=== PATIENT | male | born 1960 | race Caucasian/White ===

== ENCOUNTER 2017-03-14 12:40 | Emergency (ER) | payer OTHER ==
[2017-03-14 14:00] VITALS: BP 151/77
[2017-03-14] MEDS ORDERED: Ondansetron ODT TAB* 4 MG SL ONE (14:45)
--- NOTE | 2017-03-14 15:14 | ED ---
Lower Extremity - HPI Summary HPI Summary: PATIENT PRESENTS TO WITH CC OF LEFT GREAT TOE PAIN RADIATING TO THE FOOT. HE HAS HAD THIS PAIN FOR OVER A WEEK, WAS SEEN BY HIS PCP AND PLACED ON CLINDAMYCIN. HE COMES IN TODAY WITH WORSENING PAIN WITH RADIATION TO THE FOOT AND STATES HE TOOK HIS NAIL OFF THIS MORNING HE FELT IT WAS INFECTED AND FALLING OFF. HE DOES NOT FEEL THAT THE ANTIBIOTIC IS HELPING, ALTHOUGH THIS MEDICATION COVERS THE NORMAL ELZBIETA FOR DIABETICS IN [place] OR PARONYCHIAS. HE ALSO HAS A HISTORY OF GOUT IN THE RIGHT GREAT TOE AND THIS FEELS SIMILAR. THE AREA IS RED, WARM TO THE TOUCH AND PAINFUL. THERE IS NO SWELLING, DRAINAGE FROM THE AREA OR PUS POCKETS. HIS DIABETES IS CONTROLLED THROUGH MEDICATION, BUT HIS BG'S HAVE BEEN RUNNING 300-400 OVER THE PAST FEW WEEKS. HE HAS NEVER HAD AN INFECTION IN THE TOE BEFORE AND DENIES NEUROPATHY FROM DIABETES. HE STATES HE WILL FOLLOW UP WITH HIS PRIMARY THIS WEEK FOR A WOUND RECHECK. - History of Current Complaint Hx Obtained From: Patient Onset/Duration: Weeks Severity Initially: Moderate Severity Currently: Moderate Pain Intensity: 4 Pain Scale Used: 0-10 Numeric Timing: Constant Location: Is Discrete @ - right great toe Associated Signs And Symptoms: Positive: Swelling, Redness Aggravating Factor(s): Standing, Ambulation, Weight Bearing Alleviating Factor(s): Rest Able to Bear Weight: Yes - Risk Factors Gout Risk Factors: Male, Diabetes, Hypertension DVT Risk Factors: Negative Septic Arthritis Risk Factor: Negative <Arlen Norris - Last Filed: 03/14/17 14:55> <Carlene Angeles - Last Filed: 03/15/17 07:01> - History of Current Complaint Chief Complaint: UCWounds Stated Complaint: RT FOOT INFECTION Time Seen by Provider: 03/14/17 14:09 - Allergies/Home Medications Allergies/Adverse Reactions: Allergies Allergy/AdvReac Type Severity Reaction Status Date / Time Sitagliptin [From Novuvia] Allergy Rash Verified 03/14/17 14:00 PMH/Surg Hx/FS Hx/Imm Hx Previously Healthy: Yes Endocrine/Hematology History: Reports: Hx Diabetes Cardiovascular History: Reports: Hx Hypercholesterolemia, Hx Hypertension Denies: Hx Pacemaker/ICD Respiratory History: Denies: Hx Asthma, Hx Chronic Obstructive Pulmonary Disease (COPD) GI History: Reports: Hx Gastroesophageal Reflux Disease Musculoskeletal History: Reports: Hx Back Problems Sensory History: Reports: Hx Contacts or Glasses Denies: Hx Hearing Aid Opthamlomology History: Reports: Hx Contacts or Glasses Psychiatric History: Denies: Hx Panic Disorder - Surgical History Surgery Procedure, Year, and Place: WISDOM TEETH Hx Anesthesia Reactions: No Infectious Disease History: No Infectious Disease History: Reports: Hx Shingles - since last visit on 2013 Denies: Traveled Outside the [place] in Last 30 Days - Family History Known Family History: Positive: Hypertension - Social History Occupation: Employed Full-time Lives: With Family Alcohol Use: Occasionally Alcohol Amount: 6 oz liquor/night Substance Use Type: Reports: None Hx Tobacco Use: No Smoking Status (MU): Former Smoker Type: Cigarettes Do You Chew or Dip Tobacco: No Amount Used/How Often: 5-6 daily Have You Chewed or Dipped Tobacco in the LAST YEAR: No Length of Time of Smoking/Using Tobacco: 3-4 yrs Have You Smoked in the Last Year: No Household Exposure: No <Arlen Norris - Last Filed: 03/14/17 14:55> Review of Systems Constitutional: Negative Cardiovascular: Negative Respiratory: Negative Positive: no symptoms reported, see HPI Positive: Arthralgia - right great tow pain Positive: Other - erythema, warm, painful - great toe - right Neurological: Negative Psychological: Normal All Other Systems Reviewed And Are Negative: Yes <Arlen Norris - Last Filed: 03/14/17 14:55> Physical Exam Triage Information Reviewed: Yes Vital Signs On Initial Exam: Initial Vitals Temp Pulse Resp BP Pulse Ox 98.2 F 97 20 151/77 97 03/14/17 13:55 03/14/17 13:55 03/14/17 13:55 03/14/17 13:55 03/14/17 13:55 Vital Signs Reviewed: Yes Appearance: Positive: Well-Appearing, No Pain Distress, Well-Nourished Skin: Positive: Warm, Skin Color Reflects Adequate Perfusion, Other - great toe - erythematous, painful with warmth Head/Face: Positive: Normal Head/Face Inspection Eyes: Positive: EOMI, DIEGO Neck: Positive: Supple, No Lymphadenopathy Respiratory/Lung Sounds: Positive: Clear to Auscultation, Breath Sounds Present Cardiovascular: Positive: Normal, RRR Musculoskeletal: Positive: Normal, Strength/ROM Intact Neurological: Positive: Normal, Sensory/Motor Intact - Santhosh Coma Scale Best Eye Response: 4 - Spontaneous Best Motor Response: 6 - Obeys Commands Best Verbal Response: 5 - Oriented <Arlen Norris - Last Filed: 03/14/17 14:55> Vital Signs On Initial Exam: Initial Vitals Temp Pulse Resp BP Pulse Ox 98.2 F 97 20 151/77 97 03/14/17 13:55 03/14/17 13:55 03/14/17 13:55 03/14/17 13:55 03/14/17 13:55 <Carlene Angeles - Last Filed: 03/15/17 07:01> Diagnostics - Vital Signs Vital Signs Temp Pulse Resp BP Pulse Ox 03/14/17 13:55 98.2 F 97 20 151/77 97 <Arlen Norris - Last Filed: 03/14/17 14:55> - Vital Signs Vital Signs Temp Pulse Resp BP Pulse Ox 03/14/17 13:55 98.2 F 97 20 151/77 97 <Carlene Angeles - Last Filed: 03/15/17 07:01> Lower Extremity Course/Dx - Course Course Of Treatment: Patient with right great toe erythema, warmth and pain for over 1 week. Placed on clindamycin by PCP last week. States pain and redness is worsening and radiating to the foot. Patient is a diabetic and has a history of gout. Will be placed on Colchicine d/t moderate kidney disease associated with diabetes and changed antibiotic to bactrim. Bactrim to cover MRSA and pathogens associated with diabetic felon. Given zofran as well to prevent nausea associated with colchicine. Encouraged to take a probiotic as well as aloe vera juice for constipation d/t medication. Patient agrees and will follow up this week at PCP office for wound check. Discussed findings with patient and informed we cannot be sure this is gout vs. infection so will treat for both. - Diagnoses Differential Diagnosis/HQI/PQRI: Positive: Cellulitis, Gout, Strain, Tendonitis <Arlen Norris - Last Filed: 03/14/17 14:55> <Carlene Angeles - Last Filed: 03/15/17 07:01> - Diagnoses Provider Diagnoses: Gout, Infection of toe Discharge <Arlen Norris - Last Filed: 03/14/17 14:55> <Carlene Angeles - Last Filed: 03/15/17 07:01> - Discharge Plan Condition: Stable Disposition: HOME Prescriptions: Colchicine* [Colcrys*] 0.6 mg PO BID #10 tab MDD 2 Ondansetron ODT TAB* [Zofran 4 MG Odt TAB*] 4 mg PO Q6H PRN #12 tab.odt MDD 4 PRN Reason: Nausea Sulfamethox/Trimethoprim DS* [Bactrim DS 800/160 TAB*] 1 tab PO BID #20 tab MDD 2 Patient Education Materials: Gout (ED) Forms: *Work Release Referrals: Drew Robin MD [Primary Care Provider] - Additional Instructions: Please discontinue antibiotic medication. Take zofran this afternoon. Take 2 tabs colchicine after 20 min of taking zofran. This evening, take 1 tab colchicine, again, 20 minutes after zofran. Repeat this morning and night until colchicine is gone. Note for work until monday. Please take bactrim twice daily for 10 days. Take probiotic on opposite schedule of antibiotic. Try aloe vera drinks for constipation. Attestation Statement User Type: Provider - I was available for consult. This patient was seen by the advanced practice provider. The patient was not presented to, seen by, or examined by me.-Stas <Carlene Angeles - Last Filed: 03/15/17 07:01>
[2017-03-15] MEDS ORDERED: Colchicine* 0.6 MG TAB PO SCH (09:00)
== END 2017-03-14 15:06 | disposition home or self-care (01) ==
LOC: UCEAST 12:40
DX: M10.9 Gout, unspecified (principal); L08.9 Local infection of the skin and subcutaneous tissue, unspecified; E11.9 Type 2 diabetes mellitus without complications; K21.9 Gastro-esophageal reflux disease without esophagitis; E78.00 Pure hypercholesterolemia, unspecified; Z87.891 Personal history of nicotine dependence
CPT/HCPCS: 99212; G0463

== ENCOUNTER → 2017-10-06 12:15 | Day surgery (SDC) | payer OTHER ==
[~2017-10-06 12:15] MED LIST: Acetaminophen TAB* 325 MG ONE; Acetaminophen TAB* 325 MG PO ONE; Buffered Lidocaine 0.9% SYRIN* 5 ML/SYR SYRINGE INTRADERM ONE; Buffered Lidocaine 0.9% SYRIN* 5 ML/SYR SYRINGE ONE; Bupivacaine 0.25% SDV* 30 ML ONE; Dexamethasone IV* 4 MG/ML 1 ML (4 MG) ONE; Famotidine IV* 10 MG/ML 2 ML (20 mg) IV ONE; Famotidine IV* 10 MG/ML 2 ML (20 mg) ONE; HYDROcodone/ACETAMIN 5-325 MG* 1 TAB PO PRN; Ibuprofen TAB* 600 MG ONE; Ibuprofen TAB* 600 MG PO PRN; Ketorolac INJ* 30 MG/ML 1 ML VIAL ONE; Lidocaine 1% INJ* 10 MG/ML 30 ML SDV ONE; Lidocaine 2% PF * 5 ML VIAL ONE; Metoclopramide TAB* 10 MG ONE; Metoclopramide TAB* 10 MG PO ONE; Midazolam* 1 MG/ML 2 ML VIAL (2 MG) ONE; Midazolam* 1 MG/ML 5 ML VIAL (5 MG) ONE; Ondansetron INJ* 2 MG/ML VIAL IV PRN; Propofol* 10 MG/ML 20 ML BTL IV PUSH ONE; Propofol* 500 MG/50 ML BTL ONE; Scopolamine 1.5 mg* PATCH TRANSDERM PRN; Scopolamine PATCH Remove* 1 NOTE MISC PATCH OFF ONE; ceFAZolin 1 GM ADVAN(*) 1 GM ADDV.VIAL IVPB ONE; ceFAZolin 2 GM PREMIX (*) 2 GM/50 ML BAG IVPB ONE; fentaNYL* 50 MCG/ML 2 ML VIAL (100 MCG VIAL) IV PRN; oxyCODONE TAB* 5 MG TAB PO PRN
[2017-10-06 16:15] VITALS: BP 160/94
--- NOTE | 2017-10-07 08:52 | OP ---
DATE OF OPERATION: 10/06/17 - MERGED WITH [facility] DATE OF : 62 SURGEON: Elliott Noonan DPM. ANESTHESIOLOGIST: Dr. Tony. ANESTHESIA: MAC local. PRE-OP DIAGNOSIS: Right second toe osteomyelitis. POST-OP DIAGNOSIS: Right second toe osteomyelitis. OPERATIVE PROCEDURE: Right second toe partial amputation. ESTIMATED BLOOD LOSS: Less than 10 cc. IV FLUIDS: LR 1000 cc. DRAINS: None. SPECIMENS: Distal portion of the right second toe. DESCRIPTION OF PROCEDURE: The patient was taken to the operating room and placed in the supine position. Time-out was called and OR team agreed. The right foot was then blocked at the level of the second toe with 5 cc of 1% lidocaine plain. The foot was then prepped and draped in sterile manner. The right foot was exsanguinated with an Esmarch bandage and the cuff was inflated to 250 mmHg. Attention was then paid to the right second toe where there was an open ulcer. The ulcer was measured to be 0.4 x 0.6 x 0.2 cm. I then proceeded to make a fish mouth incision at the distal tip of the toe. This was followed all the way down to the distal interphalangeal joint. I then proceeded to release the tendons, the ligaments surrounding the joint. I then proceeded to disarticulate the joint at that level. Once it was determined that the infected portion of the toe was removed, I irrigated the site. I sent cultures for aerobic and anaerobic as well as sent the toe to Pathology for tissue microscopy. The wound was then irrigated in a closed anatomical fashion. This completed the procedure. I injected the sites with 5 cc of 0.25 Marcaine plain along with 8 mg of dexamethasone phosphate. This completed the procedure. The patient tolerated the anesthesia well. The cuff was deflated and the patient was taken to Recovery in stable condition as well as discharged later on in stable condition as well. [id number]/[facility] #: [id number] [facility]
== END | disposition home or self-care (01) ==
LOC: OR 12:15
PROVIDERS: ATTEND Podiatrist
DX: E11.69 Type 2 diabetes mellitus with other specified complication (principal); M86.8X7 Other osteomyelitis, ankle and foot; Z79.84 Long term (current) use of oral hypoglycemic drugs; Z87.891 Personal history of nicotine dependence; Z68.41 Body mass index [BMI] 40.0-44.9, adult; I10 Essential (primary) hypertension; K21.9 Gastro-esophageal reflux disease without esophagitis
CPT/HCPCS: 87070; 87073; 87076; 87205; A9270-GY; J0690; J1100; J1885; J2001; J2250; J2704

== ENCOUNTER 2019-03-30 13:48 | Emergency (ER) | payer OTHER ==
[2019-03-30] MEDS ORDERED: Aspirin 81 mg CHEW TAB* 81 MG TAB.CHEW PO ONE (14:24)
--- NOTE | 2019-03-30 14:30 | UC ---
Shortness of Breath HPI - HPI Summary HPI Summary: Sob worsening over the past 2-3 days in addition worsening swelling in legs- - History of Current Complaint Chief Complaint: UCGeneralIllness Stated Complaint: SHORTNESS OF BREATH Time Seen by Provider: 03/30/19 14:11 Hx Obtained From: Patient Onset/Duration: Gradual Onset, Lasting Days - 2-3, Still Present Timing: Constant Current Severity: Moderate Dyspnea At: Exertion Aggrevating Factors: Movement Alleviating Factors: Oxygen Associated Signs & Symptoms: Positive: Edema - Allergy/Home Medications Allergies/Adverse Reactions: Allergies Allergy/AdvReac Type Severity Reaction Status Date / Time sitagliptin Allergy Intermediate Rash Verified 03/30/19 14:08 walnut/almonds Allergy Severe throats Uncoded 03/30/19 14:08 swells PMH/Surg Hx/FS Hx/Imm Hx Previously Healthy: No Endocrine History: Diabetes, Dyslipidemia Cardiovascular History: Hypertension GI/ History: Gastroesophageal Reflux - Surgical History Surgical History: Yes Surgery Procedure, Year, and Place: WISDOM TEETH. gall bladder removed 08/2017 [place] in [place]. right foot - hammertoe - Family History Known Family History: Positive: Hypertension - Social History Occupation: Employed Full-time Lives: With Family Alcohol Use: Daily Alcohol Amount: 6-8 oz liquor/night Substance Use Type: None Smoking Status (MU): Former Smoker Type: Cigarettes Amount Used/How Often: 5-6 daily, smoked for on and off 7 years Length of Time of Smoking/Using Tobacco: 3-4 yrs Have You Smoked in the Last Year: No When Did the Patient Quit Smoking/Using Tobacco: 1995 Review of Systems All Other Systems Reviewed And Are Negative: Yes Constitutional: Positive: Negative Skin: Positive: Negative Eyes: Positive: Negative ENT: Positive: Negative Respiratory: Positive: Shortness Of Breath Cardiovascular: Positive: Other - sensation that he cannot take a deep breath resolved with O2 Gastrointestinal: Positive: Negative Genitourinary: Positive: Negative Motor: Positive: Negative Neurovascular: Positive: Negative Musculoskeletal: Positive: Edema Neurological: Positive: Negative Psychological: Positive: Negative Is Patient Immunocompromised?: No Physical Exam Triage Information Reviewed: Yes Appearance: Ill-Appearing - mild, Pain Distress - mild, Obese Vital Signs: Initial Vital Signs Temp 99 F 03/30/19 13:54 Pulse 79 03/30/19 13:54 Resp 20 03/30/19 13:54 BP 193/94 03/30/19 13:54 Pulse Ox 91 03/30/19 13:54 Vital Signs Reviewed: Yes Eye Exam: Normal Eyes: Positive: Conjunctiva Clear ENT Exam: Normal ENT: Positive: Normal ENT inspection, Hearing grossly normal. Negative: Trismus , Muffled voice, Hoarse voice Neck exam: Normal Neck: Positive: Supple, Nontender Respiratory Exam: Other Respiratory: Positive: No accessory muscle use, Respiratory distress - mild, Decreased breath sounds Cardiovascular Exam: Normal Cardiovascular: Positive: RRR, No Murmur, Pulses Normal, Brisk Capillary Refill Musculoskeletal Exam: Normal Musculoskeletal: Positive: Strength Intact, ROM Intact, Edema @ Neurological Exam: Normal Neurological: Positive: Alert, Muscle Tone Normal Psychological Exam: Normal Skin Exam: Normal Diagnostics - Laboratory Lab Results: [id number] - EKG Cardiac Rate: NL Cardiac Rhythm: Sinus: Normal Ectopy: None ST Segment: Normal EKG Comparison: No Significant Change Re-Evaluation - Re-Evaluation First Eval Change: Improved - relief with oxygen Shortness of Breath Dx - Course Course Of Treatment: iv, o2 FSBS, to [facility] by EMS, EKG - Differential Dx/Diagnosis Provider Diagnosis: SOB (shortness of breath), Hyperglycemia due to type 2 diabetes mellitus, Hypertension - Physician Notification/Consults Discussed Patient Care With: William Kelley Time Discussed With Above Provider: 14:20 Discharge - Sign-Out/Discharge Documenting (check all that apply): Patient Departure All imaging exams completed and their final reports reviewed: No Studies - Discharge Plan Condition: Guarded Disposition: TRANS HIGHER LVL OF CARE FAC Referrals: Drew Robin MD [Primary Care Provider] - - Billing Disposition and Condition Condition: GUARDED Disposition: Trans Higher Lvl of Care Fac
[2019-03-30 14:42] VITALS: BP 185/99
== END 2019-03-30 14:43 | disposition short-term general hospital (02) ==
LOC: UCEAST 13:48
DX: R06.02 Shortness of breath (principal); E11.65 Type 2 diabetes mellitus with hyperglycemia; I10 Essential (primary) hypertension; R60.0 Localized edema; E78.5 Hyperlipidemia, unspecified; K21.9 Gastro-esophageal reflux disease without esophagitis; Z87.891 Personal history of nicotine dependence
CPT/HCPCS: 93005; 99213; A9270-GY; G0463

== ENCOUNTER 2019-03-30 15:11 | Inpatient (IN) | payer OTHER ==
--- NOTE | 2019-03-30 15:38 | ED ---
Shortness of Breath - HPI Summary HPI Summary: This patient is a 58 year old M brought in by ambulance to [facility] accompanied by his with a chief complaint of worsening SOB with exertion for the past couple of days. He states today he could only walk 10-15 steps causing SOB and lightheadedness. SOB worsened when lying down. Symptoms currently improved after EMS nebulizer tx Reports recent dry cough and swelling and pain in the legs that is slightly worse than baseline. He reports diuretic use for the lower extremity swelling. Patient denies fever, abdominal pain, and CP. PMHx of HTN. Denies hx of CHF and COPD. - History of Current Complaint Chief Complaint: EDShortnessOfBreath Time Seen by Provider: 03/30/19 15:19 Hx Obtained From: Patient Onset/Duration: Gradual Onset, Lasting Days Dyspnea At: Exertion Aggrevating Factors: Recumbent Position Alleviating Factors: Bronchodilators Associated Signs & Symptoms: Cough (Nonproductive), Calf Pain/Swelling, Edema Related History: Obesity - Allergy/Home Medications Allergies/Adverse Reactions: Allergies Allergy/AdvReac Type Severity Reaction Status Date / Time nut - unspecified Allergy Severe Swelling Verified 03/31/19 16:07 Of Face,Lips,& Throat sitagliptin Allergy Intermediate Rash Verified 03/30/19 14:08 Home Medications: Home Medications hydroCHLOROthiazide [Hydrochlorothiazide] 25 mg PO DAILY 03/30/19 [History Confirmed 03/30/19] Losartan Potassium 100 mg PO QAM 03/31/19 [History Confirmed 03/31/19] Naproxen [Naproxen 500 mg tab] 500 mg PO TID PRN 03/31/19 [History Confirmed 11/07] Tetrahydrozoline HCl [Visine] 0.05 % OP DAILY PRN 03/31/19 [History Confirmed ] glipiZIDE TAB* [Glucotrol TAB*] 5 mg PO QPM 03/31/19 [History Confirmed 03/31/19 ] PMH/Surg Hx/FS Hx/Imm Hx Endocrine/Hematology History: Reports: Hx Diabetes - TYPE 2 Denies: Hx Thyroid Disease Cardiovascular History: Reports: Hx Hypercholesterolemia, Hx Hypertension Denies: Hx Pacemaker/ICD Respiratory History: Denies: Hx Asthma, Hx Chronic Obstructive Pulmonary Disease (COPD) GI History: Reports: Hx Gastroesophageal Reflux Disease Denies: Hx Ulcer History: Denies: Hx Renal Disease Musculoskeletal History: Reports: Hx Back Problems Sensory History: Reports: Hx Contacts or Glasses - READERS Denies: Hx Hearing Aid Opthamlomology History: Reports: Hx Contacts or Glasses - READERS Psychiatric History: Denies: Hx Panic Disorder - Cancer History Hx Chemotherapy: No - Surgical History Surgery Procedure, Year, and Place: WISDOM TEETH. gall bladder removed 08/2017 [place] in [place]. right foot - hammertoe Hx Anesthesia Reactions: No Infectious Disease History: No Infectious Disease History: Reports: Hx Shingles - since last visit on 2013, Traveled Outside the [place] in Last 30 Days Denies: Hx Hepatitis, Hx Human Immunodeficiency Virus (HIV) - Family History Known Family History: Positive: Hypertension - Social History Alcohol Use: Daily Alcohol Amount: 6-8 oz liquor/night Substance Use Type: Reports: None Hx Tobacco Use: Yes - 20 years ago Smoking Status (MU): Former Smoker Type: Cigarettes Amount Used/How Often: 5-6 daily, smoked for on and off 7 years Length of Time of Smoking/Using Tobacco: 3-4 yrs Have You Smoked in the Last Year: No Review of Systems Positive: Other - lightheaded. Negative: Fever Negative: Chest Pain Positive: Shortness Of Breath, Cough Positive: Edema All Other Systems Reviewed And Are Negative: Yes Physical Exam - Summary Physical Exam Summary: Appearance: Well-appearing, moderately obese man in no acute distress Skin: Warm, dry, no obvious rash Eyes: sclera anicteric, no conjunctival pallor ENT: mucous membranes moist, pharynx appears normal Neck: Supple, nontender Respiratory: no signs of respiratory distress, bilateral crackles half way up on inspiration without wheezing Cardiovascular: Normal S1, S2. No murmurs. Normal distal pulses in tibial and radial bilaterally. Abdomen: Soft, nontender, normal active bowel sounds present Musculoskeletal: Strength/ROM Intact Bilateral symmetric edema of feet, ankles, and lower legs without any associated inflammatory changes Neurological: A&Ox3, awake and alert, mentation is normal, speech is fluent and appropriate Psychiatric: affect is normal, does not appear anxious or depressed Triage Information Reviewed: Yes Vital Signs On Initial Exam: Initial Vitals Temp Pulse Resp BP Pulse Ox 98.7 F 79 18 183/98 92 03/30/19 15:13 03/30/19 15:13 03/30/19 15:13 03/30/19 15:13 03/30/19 15:13 Vital Signs Reviewed: Yes Diagnostics - Vital Signs Vital Signs Temp Pulse Resp BP Pulse Ox 03/30/19 15:13 98.7 F 79 18 183/98 92 - Laboratory Result Diagrams: 04/01/19 07:30 04/02/19 06:38 Lab Statement: Any lab studies that have been ordered have been reviewed, and results considered in the medical decision making process. - Radiology CXR Radiology Interpretation Completed By: Radiologist Summary of Radiographic Findings: FINDINGS SUGGESTIVE OF PULMONARY EDEMA. ED Physician has reviewed this report. - EKG 1539 Cardiac Rate: NL - 71 BPM EKG Rhythm: Sinus Rhythm Summary of EKG Findings: NSR at 71 BPM, P waves, QRS complex, and T waves are within normal limits, T waves and intervals are normal, no ischemic changes. This is a normal EKG Course/Dx - Course Course Of Treatment: 58 year old M with a chief complaint of worsening SOB with exertion for the past couple of days. SOB worsened with lying down. Lower extremity edema present. No known hx of CHF. Patient given 40mg of Lasix. Bloodwork obatined with D-Dimer of 597. CXR reveals, " FINDINGS SUGGESTIVE OF PULMONARY EDEMA." EKG is NSR at 71 BPM. Case is discussed with Dr. Hackett, hospitalist, who agrees to admission. - Diagnoses Provider Diagnoses: CHF (congestive heart failure) - Physician Notifications Discussed Care of Patient With: Aman Hackett - hospitalist Time Discussed With Above Provider: 17:08 Instructed by Provider To: Admit As Inpatient Discharge - Sign-Out/Discharge Documenting (check all that apply): Patient Departure - admit Patient Received Moderate/Deep Sedation with Procedure: No - Discharge Plan Condition: Stable Disposition: ADMITTED TO [facility] - Billing Disposition and Condition Condition: STABLE Disposition: Admitted to [facility] - Attestation Statements Document Initiated by Lisandra: Yes Documenting Scribe: Nkechi Cates Provider For Whom iLsandra is Documenting (Include Credential): William Sylvester MD Scribe Attestation: Nkechi Monroy scribed for William Sylvester MD on 04/02/19 at 1110. Scribe Documentation Reviewed: Yes Provider Attestation: The documentation as recorded by the Nkechi waddell accurately reflects the service I personally performed and the decisions made by me, William Sylvester MD Status of Lisandra Document: Viewed
[2019-03-30 16:29] LABS: ALT 24 U/L (7-52); Albumin 3.7 g/dL (3.2-5.2); Alkaline Phosphatase 62 U/L (34-104); BUN/Creatinine Ratio 13.8 (8-20); Blood Urea Nitrogen 31 mg/dL (6-24); CO2 Carbon Dioxide 20 mmol/L (22-32); Calcium 8.6 mg/dL (8.6-10.3); Chloride 108 mmol/L (101-111); EGFR African American 36.6 (>60); EGFR Non-African American 30.2 (>60); Globulin 3.6 g/dL (2-4); Glucose 226 mg/dL (70-100); Sodium 137 mmol/L (135-145); Total Protein 7.3 g/dL (6.4-8.9)
[2019-03-30 16:30] LABS: Hematocrit 40 % (42-52); Hemoglobin 13.4 g/dL (14.0-18.0); Mean Corpuscular HGB Conc 34 g/dL (31-36); Mean Corpuscular Hemoglobin 33 pg (27-31); Mean Corpuscular Volume 97 fL (80-94); Red Blood Count 4.12 10^6 /uL (4.18-5.48); Red Cell Distribution Width 15 % (10.5-15)
[2019-03-30 16:31] LABS: Anion Gap 9 mmol/L (2-11); Troponin I 0.01 ng/mL (<0.04)
[2019-03-30] MEDS ORDERED: Furosemide IV* 10 MG/ML VIAL (40 MG) IV ONE (17:09)
[2019-03-30 17:17] LABS: Potassium Redraw 4.3 mmol/L (3.5-5.0)
[2019-03-30 17:21] LABS: White Blood Count 11.6 10^3/uL (3.5-10.8)
[2019-03-30 17:27] LABS: Mean Platelet Volume 9.1 fL (7.4-10.4); Platelet Count 110 10^3/uL (150-450)
[2019-03-30 17:29] LABS: ABS Basophils 0.1 10^3/ul (0-0.2); ABS Eosinophils 0.5 10^3/ul (0-0.6); ABS Lymphocytes 2.7 10^3/ul (1.0-4.8); ABS Monocytes 1.1 10^3/ul (0-0.8); Eosinophil % 4.7 %; Lymphocyte % 23.4 %; Nucleated Red Blood Cells % 0.2
[2019-03-30] MEDS ORDERED: Acetaminophen TAB* 325 MG PO PRN (19:00)
[2019-03-30] MEDS ORDERED: Ondansetron INJ* 2 MG/ML VIAL IV PRN (19:00)
[2019-03-30] MEDS ORDERED: Enoxaparin(*) 40 MG/0.4 ML SYR SUBCUT SCH (19:00)
[2019-03-30] MEDS ORDERED: hydrALAZINE IV* 20 MG/ML VIAL IV SLOW PU PRN (19:09)
[2019-03-30 19:13] LABS: Urine Appearance Clear; Urine Bacteria Absent (Absent); Urine Bilirubin Negative (Negative); Urine Blood Negative (Negative); Urine Color Straw; Urine Glucose 1+(50 mg/dL) (Negative); Urine Ketones Negative (Negative); Urine Nitrite Negative (Negative); Urine Protein 2+(100 mg/dL) (Negative); Urine Red Blood Cell Trace(0-2/hpf) (Absent); Urine Specific Gravity 1.005 (1.010-1.030); Urine Urobilinogen Negative (Negative); Urine White Blood Cell Trace(0-5/hpf) (Absent)
[2019-03-30] MEDS ORDERED: Cetirizine* 10 MG TAB PO PRN (19:15)
[2019-03-30] MEDS ORDERED: Dextrose 50% Syringe 50 ML* 25 GM/50 ML SYRINGE IV PUSH PRN (19:36)
[2019-03-30] MEDS: hydrALAZINE IV* 20 MG/ML VIAL IV SLOW PU PRN (21:29)
[2019-03-30] MEDS: Metoprolol Tartrate TAB* 50 mg PO SCH (21:29)
[2019-03-30] MEDS: Heparin VIAL(*) 5000 UNITS/ML VIAL (FIVE THOUSAND) SUBCUT SCH (21:29)
[2019-03-30] MEDS: Atorvastatin* 10 MG TAB PO SCH (21:29)
--- NOTE | 2019-03-31 00:49 | HP ---
CC: Dr. Robin * HISTORY AND PHYSICAL: DATE OF ADMISSION: 03/30/19 PROVIDER: DEJUAN Parker. ATTENDING PHYSICIAN: Dr. Torres Ryan * (dictated by DEJUAN Parker) . PRIMARY CARE PHYSICIAN: Dr. Robin. CHIEF COMPLAINT: Dyspnea on exertion for the last 3 to 4 days. HISTORY OF PRESENT ILLNESS: Ravindra Patterson is a 58-year-old white male with a past medical history of diabetes mellitus type 2, hypertension, hyperlipidemia , GERD and BPH, who presents to the emergency department via EMS with progressing dyspnea on exertion for the last 3 to 4 days. Since yesterday the patient finds that he is taking only about 10 steps and is very short of breath. He finds that he needs to rest to catch his breath. Additionally, this morning he was feeling shortness of breath with minimal ambulation, became lightheaded. He did not fall or syncopize. He has had increasing leg swelling as well. The patient notes that he has intermittent leg swelling but for the past few days has been noticing increasing leg swelling and this the worst that he has ever seen it. The patient also notes that he has had dry cough for the last several weeks. The patient denies fever or chills, chest pain, abdominal pain, nausea, vomiting, recent sick contacts and travel. The patient denies any visual changes and headache. ED COURSE: The patient arrived to emergency department. His vital signs were respiratory rate of 18, O2 saturation of 92% on room air, heart rate 79, temperature 98.7 and blood pressure 183/98. The patient received 40 mg of IV Lasix in the emergency department and the hospitalist were asked to evaluate the patient for admission. PAST MEDICAL HISTORY: 1. Diabetes mellitus type 2. 2. Hypertension. 3. Hyperlipidemia. 4. BPH. 5. GERD. 6. Ectopic kidney, the patient reports both kidneys are on the left side. PAST SURGICAL HISTORY: The patient has wisdom teeth extraction, hammertoe surgery, cholecystectomy and right second toe surgery with debridement. HOME MEDICATIONS: 1. Hydrochlorothiazide 25 mg p.o. daily. 2. Glipizide 5 mg p.o. p.o. b.i.d. 3. Fluticasone 2 sprays both nares q.a.m. 4. Felodipine 5 mg p.o. daily. 5. Cetirizine 10 mg p.o. daily, p.r.n. congestion. 6. Atenolol 50 mg p.o. daily. 7. Simvastatin 20 mg p.o. at bedtime. 8. Omeprazole 20 mg p.o. daily. 9. Losartan 100 mg p.o. daily. ALLERGIES: The patient has anaphylaxis to WALNUTS and ALMONDS. The patient has reaction of rash to SITAGLIPTIN. FAMILY HISTORY: The patient's father is healthy in his 70s. The patient's mother from complications due to COPD at age 76. He reports his father is healthy and his medical conditions are all related to injuries in the workplace. SOCIAL HISTORY: The patient is and has 3 children. He works in [employer] at [email or web address]. He quit smoking 20 years ago and prior to that he smoked for less than 10 years approximately a pack per week. The patient drinks 6 to 8 ounces of vodka per day and denies illicit drug use. REVIEW OF SYSTEMS: An 11-point review of systems was completed, and all pertinent positives and negatives are above in the HPI. All other systems are negative. PHYSICAL EXAMINATION GENERAL: An obese white male, lying upright in the emergency department stretcher, appearing in no acute distress. HEENT: Head: Normocephalic and atraumatic. Eyes: Sclerae anicteric, EOMI, PERRL. ENT: Mucous membranes are moist. NECK: Without JVD. Neck is supple. LUNGS: Lungs are clear to auscultation throughout. No crackles, wheezing or rhonchi. Chest expansion is equal. Tachypnea is noted with minimal exertion such as repositioning in bed. CARDIO: Regular rate and rhythm without murmurs, rubs or gallops. ABDOMEN: Abdomen is obese, soft, nontender, and nondistended. Bowel sounds are normoactive x4 quadrants. EXTREMITIES: +2 pitting edema pretibially up to knee. Some evidence of pigmentation changes indicating vascular possible venous insufficiency. NEUROLOGIC: The patient is alert and oriented x3. Strength is 5/5 in all extremities. No focal deficits. PSYCH: The patient is pleasant and cooperative. SKIN: Skin is warm, dry and intact without rashes or ecchymosis. DIAGNOSTIC STUDIES/LAB DATA: White blood cell count 11.6, hemoglobin 13.4, hematocrit 40, platelet count 110. Sodium 137, potassium 4.3, chloride 108, CO2 of 20, BUN 31, creatinine 2.25, glucose 226. Troponin 0.01. BNP 267. D- dimer 597. Total bili 0.60, AST 27, ALT 24, alk phos 62. Chest x-ray, 03/30/19, with pulmonary edema. EKG from 03/30/19, no ST elevations or depressions. No T-wave inversions, normal axis. Normal sinus rhythm. Rate 71 betas per minute. ASSESSMENT AND PLAN: Ravindra Patterson is a 58-year-old white male with a past medical history significant for diabetes mellitus type 2, hypertension, hyperlipidemia, gastroesophageal reflux disease, BPH and ectopic kidney, who presents to the emergency department with dyspnea on exertion, worsening over the last several days and peripheral edema. The patient will be admitted in observation for: 1. Dyspnea on exertion and peripheral edema. This is likely due to congestive heart failure exacerbation. The patient does not carry a diagnosis of congestive heart failure and this may be the first presentation as such. The patient does have pulmonary edema evident on his chest x-ray. His lung exam sounds clear despite this. However, the patient does evidently have respiratory distress and has a new oxygen requirement. The patient received 40 mg of IV Lasix in the emergency department. I will continue this. Tomorrow, I will order strict I and O's, daily standing weight and a low sodium diet. There is no evidence of prior echocardiograms in electronic medical record that I have access to. I will order an echocardiogram for tomorrow to rule out any possibility of alternative causes of this peripheral edema. I will order bilateral lower extremities venous Doppler to rule out deep venous thrombosis given that there is an age adjusted minimally positive D-dimer. Likelihood of pulmonary embolus is very low given the patient has not hypotensive and is not tachycardiac and this dyspnea on exertion has been worsening over several days. The patient will be admitted on Telemetry. 2. Acute kidney injury on chronic kidney disease. It is found in old records from 2017 that the patient had creatinine of 1.4 at that time, but today creatinine is 2.25. I have ordered a urinalysis with reflex to urine culture and this is pending. In the setting of acute kidney injury, I will hold the patient's home glipizide, atenolol, and losartan. I will not be giving IV fluids due to the likelihood of an acute congestive heart failure exacerbation. Additionally, the patient reports a history of ectopic kidney. He states that both of his kidneys are on the left side. If his creatinine does continue to remain high, we will order renal ultrasound to investigate. At this point, it would be explained by congestive heart failure exacerbation. 3. Hypertension. The patient is hypertensive in the emergency department despite taking all of his medications this morning. The patient takes 4 antihypertensives at home and this is not managing his hypertension today. Due to acute kidney injury, I will be holding his atenolol and using metoprolol tartrate and because his home felodipine is non-formulary, I will order nifedipine to assist with his hypertension in addition to likely stage of exacerbation, I will order nitro paste and p.r.n. hydralazine as ordered as well as this is needed. His home losartan is held as well in the setting of acute kidney injury. 4. Diabetes mellitus type 2. The patient takes glipizide at home and this will be held especially in the setting of acute kidney injury. I will order lispro sliding scale and a.c. and h.s. fingersticks. 5. Mild leukocytosis. The patient has leukocytosis to 11.6. There does not appear to be a consolidation on chest x-rays. His lung sounds clear. He is not febrile. He has had a cough for the last several weeks but this is likely related to developing congestive heart failure. I will continue to monitor this. As previously mentioned urinalysis is pending. 6. Hyperlipidemia. We will continue the patient's home simvastatin. 7. Gastroesophageal reflux disease. Continue the patient's home omeprazole. 8. FEN. A low-sodium diet. No IV fluids will be given in the setting of congestive heart failure exacerbation. Electrolytes are within normal limits. 9. Code status. The patient is a full code. 10. DVT prophylaxis. The patient has a DVT risk score of 3 in the setting of his acute kidney injury with a low creatinine clearance. We will give heparin subcu t.i.d. The patient should he need a surrogate medical decision maker, would like his , Lucille Patterson to do so. Her phone number is [phone]. TIME SPENT: Approximately 55 minutes was spent on this admission, approximately half of this time was spent at bedside. This case has been reviewed by my attending, Dr. Torres Ryan and he agrees with this assessment and plan of care. DEJUAN PARKER [id number]/[facility] #: [id number] BROOKS
[2019-03-31] MEDS: hydrALAZINE IV* 20 MG/ML VIAL IV SLOW PU PRN ×2 (04:36→20:30)
[2019-03-31] MEDS: Nitro 2% OINT* (Nitroglycerin) 1 INCH/PAK PAK TOPICAL SCH ×2 (05:37→12:59)
[2019-03-31] MEDS: Heparin VIAL(*) 5000 UNITS/ML VIAL (FIVE THOUSAND) SUBCUT SCH ×3 (05:37→22:13)
[2019-03-31] MEDS: Insulin LISPRO* 1 UNITS UNIT SUBCUT SCH ×3 (07:38→17:25)
[2019-03-31 08:23] LABS: ABS Basophils 0.1 10^3/ul (0-0.2); ABS Eosinophils 0.4 10^3/ul (0-0.6); ABS Lymphocytes 1.2 10^3/ul (1.0-4.8); ABS Monocytes 0.9 10^3/ul (0-0.8); ABS Neutrophils 4.3 10^3/ul (1.5-7.7); Eosinophil % 6.1 %; Hematocrit 38 % (42-52); Hemoglobin 12.7 g/dL (14.0-18.0); Mean Corpuscular HGB Conc 34 g/dL (31-36); Mean Corpuscular Hemoglobin 32 pg (27-31); Mean Corpuscular Volume 96 fL (80-94); Mean Platelet Volume 8.6 fL (7.4-10.4); Nucleated Red Blood Cells % 0.1; Platelet Count 153 10^3/uL (150-450); Red Blood Count 3.91 10^6 /uL (4.18-5.48); Red Cell Distribution Width 15 % (10.5-15); White Blood Count 6.8 10^3/uL (3.5-10.8)
[2019-03-31 08:32] LABS: BUN/Creatinine Ratio 13.1 (8-20); Calcium 8.8 mg/dL (8.6-10.3); EGFR African American 38.7 (>60); Potassium 3.9 mmol/L (3.5-5.0)
[2019-03-31] MEDS ORDERED: amLODIPine TAB* 5 MG PO SCH (09:00)
[2019-03-31] MEDS ORDERED: NIFEdipine ER TAB* 30 MG PO SCH (09:00)
[2019-03-31] MEDS: Fluticasone NASAL SPRAY 50MCG* 16 gm SPRAY BTL BOTH NARES SCH (10:15)
[2019-03-31] MEDS: Pantoprazole TAB * 40 MG TAB PO SCH (10:16)
[2019-03-31] MEDS: Metoprolol Tartrate TAB* 50 mg PO SCH ×2 (10:16→22:13)
[2019-03-31] MEDS: Furosemide IV* 10 MG/ML VIAL (40 MG) IV SCH (10:16)
[2019-03-31] MEDS: Hydrochlorothiazide TAB* 25 MG PO SCH (10:16)
--- NOTE | 2019-03-31 15:03 | PN ---
Subjective Date of Service: 03/31/19 Interval History: Reports improvement in SOB and decrease in LE swelling since his admission last night Objective Active Medications: Acetaminophen (Tylenol Tab*) 650 mg PO Q4H PRN PRN Reason: FEVER/PAIN Atorvastatin Calcium (Lipitor*) 10 mg PO BEDTIME [facility] Last Admin: 03/30/19 21:29 Dose: 10 mg Cetirizine HCl (Zyrtec*) 10 mg PO DAILY PRN; Protocol PRN Reason: Allergy Symptoms Dextrose (D50w Syringe 50 Ml*) 12.5 gm IV PUSH .FOR FS < 60 - SS PRN PRN Reason: FS < 60 Fluticasone Propionate (Flonase Nasal [place] 50mcg*) 2 spray BOTH NARES QAM [facility] Last Admin: 03/31/19 10:15 Dose: 2 spray Furosemide (Lasix Iv*) 40 mg IV DAILY [facility] Last Admin: 03/31/19 10:16 Dose: 40 mg Heparin Sodium (Porcine) (Heparin Vial(*)) 5,000 units SUBCUT Q8HR [facility] Last Admin: 03/31/19 12:58 Dose: 5,000 units Hydralazine HCl (Apresoline Iv*) 5 mg IV SLOW PU Q6H PRN PRN Reason: SYSTOLIC BP GREATER THAN: Last Admin: 03/31/19 04:36 Dose: 5 mg Hydrochlorothiazide (Hydrodiuril Tab*) 25 mg PO DAILY [facility] Last Admin: 03/31/19 10:16 Dose: 25 mg Insulin Human Lispro (Humalog*) 0 units SUBCUT AC [facility]; Protocol Last Admin: 03/31/19 12:58 Dose: 6 units Metoprolol Tartrate (Lopressor Tab*) 50 mg PO Q12HR [facility] Last Admin: 03/31/19 10:16 Dose: 50 mg Nifedipine (Procardia Xl Tab*) 60 mg PO DAILY [facility] Nitroglycerin (Nitroglycerin 2% Oint*) 0.5 inch TOPICAL 0600,1200 [facility]; Protocol Last Admin: 03/31/19 12:59 Dose: 0.5 inch Ondansetron HCl (Zofran Inj*) 4 mg IV Q4H PRN PRN Reason: NAUSEA/VOMITING Pantoprazole Sodium (Protonix Tab*) 40 mg PO DAILY [facility] Last Admin: 03/31/19 10:16 Dose: 40 mg Pharmacy Profile Note (Nitro Patch/Oint Remove*) 1 note PATCH OFF 1800 AMANDA Vital Signs - 8 hr 03/31/19 03/31/19 08:06 11:19 Temperature 97.5 F Pulse Rate 74 Respiratory 16 Rate Blood Pressure 170/80 (mmHg) O2 Sat by Pulse 90 Oximetry Oxygen Devices in Use Now: Nasal Cannula Eyes: No Scleral Icterus Neck: NL Appearance and Movements; NL JVP, Trachea Midline Respiratory: - - crackles at bases Cardiovascular: NL Sounds; No Murmurs; No JVD, RRR Abdominal: NL Sounds; No Tenderness; No Distention Extremities: - - 2+ edema bilaterally Skin: No Rash or Ulcers Neurological: Alert and Oriented x 3 Result Diagrams: 03/31/19 07:58 03/31/19 07:58 Assess/Plan/Problems-Billing Assessment: - Patient Problems (1) CHF exacerbation Current Visit: Yes Status: Acute Code(s): I50.9 - HEART FAILURE, UNSPECIFIED SNOMED Code(s): 646346043 Comment: No known h/o CHF CXR with pul edema and clinical suggestion of vol overload and pul edema BNP elevated Improving on lasix Will continue lasix 40 mg iv q daily B thomas Echo pending to eval cardiac fx (2) JONY (acute kidney injury) Current Visit: Yes Status: Acute Code(s): N17.9 - ACUTE KIDNEY FAILURE, UNSPECIFIED SNOMED Code(s): 01736957 Comment: Prior rec Baseline Cr in 2017 1.4 No recent records Cr of 2.25 with JONY on CKD Can be cardiorenal.Also has h/o ectopic kidneys and has been using naproxen Will hold nsaids which can contribute to chf and renal failure UA, urine na,creatine,urea to assess Ua also pos for protein Will get proteinuria assessment with spot urine protein/cr ratio. Can have baseline diabetic kidney dx and proteinuria Ultrasound to r/o obstruction hold losartan for now (3) Uncontrolled hypertension Current Visit: Yes Status: Acute Code(s): I10 - ESSENTIAL (PRIMARY) HYPERTENSION SNOMED Code(s): 48746280 Comment: BP was in the 180s on admission despite being on 4 meds On B thomas, lasix.Losartan on hold Will uptitrate Nifedipine to 60 mg from 30 mg that he is on.He is on felodipine at home \PRN hydralazine and can titrate bp meds more Can go into flash pul edema with uncontrolled hypertesion and hypertensive urgency (4) Diabetes Current Visit: Yes Status: Acute Code(s): E11.9 - TYPE 2 DIABETES MELLITUS WITHOUT COMPLICATIONS SNOMED Code(s): 05218661 Comment: ISS for now Home glipizide on hold
--- NOTE | 2019-03-31 15:37 | ECHO ---
*[facility]* [place] [address] Fax #: [phone] Transthoracic Echocardiogram Patient: Leonardo, Height: 69 in / Ravindra Garcia 175.3 cm : 1960 Weight: 299.4 lb / Study Date: 03/31/2019 136.1 kg Age: 58 BP: 162 / 83 Gender: M BMI/BSA: 44.3 HR: 74 bpm kg/m^2 / 2.45 m^2 *Chief Medical Physicist: * Shelley Santana [facility] *Referring Physician: * O'Lynne Beltran *Reading Physician: * Fred Yeh MD Indications: Congestive Heart Failure. History: Risk factors: Hypertension. Diabetes mellitus. Obese. Dyslipidemia. Conclusions Summary: 1. Impressions: No previous study was available for comparison. 2. Left atrium: The atrium is mildly dilated. 3. Right atrium: The atrium is mildly to moderately dilated. 4. Mitral valve: There is trace to mild regurgitation. 5. Aortic valve: There is trivial regurgitation. 6. Tricuspid valve: There is trace to mild regurgitation. Study data: Transthoracic echocardiogram. Procedure: Transthoracic echocardiography was performed. Image quality was fair. The study was technically limited due to body habitus. Complete 2D, spectral Doppler, and color flow Doppler. Location: Bedside. Patient status: Observation. Patient room number: 410-2. Rhythm: Normal sinus rhythm. Findings Left ventricle: The cavity size is normal. Wall thickness is mildly increased. Systolic function is normal. The estimated ejection fraction is 55-60%. Wall motion is normal; there are no regional wall motion abnormalities. Features are consistent with a pseudonormal left ventricular filling pattern, with concomitant abnormal relaxation and increased filling pressure (grade 2 diastolic dysfunction). Right ventricle: The cavity size is mildly dilated. Wall thickness is mildly increased. The moderator band is present. Systolic function is normal. Left atrium: The atrium is mildly dilated. Right atrium: The atrium is mildly to moderately dilated. Mitral valve: The leaflets are mildly thickened. There is no evidence of stenosis. There is trace to mild regurgitation. The peak diastolic gradient is 7.2 mm Hg. Aortic valve: The valve is trileaflet. The leaflets are mildly thickened. There is no evidence of stenosis. There is trivial regurgitation. The LVOT to aortic valve VTI ratio is 0.75. The mean systolic gradient is 6.0 mm Hg. The peak systolic gradient is 12.0 mm Hg. Tricuspid valve: The leaflets are normal thickness. There is no evidence of stenosis. There is trace to mild regurgitation. Pulmonic valve: The leaflets are normal thickness. There is no evidence of stenosis. There is trivial regurgitation. The peak systolic gradient is 5.0 mm Hg. Aorta: Aortic root: The aortic root is mildly dilated. Ascending aorta: The ascending aorta is mildly dilated. Aortic arch: The aortic arch is appears normal. Pericardium: A prominent pericardial fat pad is present. There is no pericardial effusion. Pulmonary arteries: The main pulmonary artery is normal-sized. Systemic veins: Inferior vena cava: The vessel is mildly dilated. The respirophasic diameter changes are blunted (< 50%). Measurements Left ventricle Value Ref Right atrium Value Ref MINESH, LAX 5.0 cm 4.2 - 5.8 SI dim, ES (H) 5.9 cm 3.4 - 5.3 ESD, LAX 3.2 cm 2.5 - 4.0 ML dim, ES, A4C (H) 5.2 cm 2.6 - 4.4 FS, LAX 36 % 25 - 43 Estimated RAP 15 mm Hg --------- PW, ED, LAX (H) 1.2 cm 0.6 - 1.0 MINESH 5.0 cm 4.2 - 5.8 Aortic valve Value Ref ESD 3.2 cm 2.5 - 4.0 Alpa diam, ED 1.8 cm --------- FS 36 % 25 - 43 Peak v, S 1.73 m/sec --------- PW, ED (H) 1.2 cm 0.6 - 1.0 Mean v, S 0.96 m/sec --------- EF 65 % 52 - 72 VTI, S 37.4 cm --------- Mass (H) 218 g 96 - 200 Mean grad, S 6.0 mm Hg --------- Mass/bsa 89 g/m^2 50 - 102 Peak grad, S 12.0 mm Hg --------- Mass/ht 124.60 g/m --------- LVOT/AV, VTI ratio 0.75 --------- Mass/ht^2.7 48.00 g/m^2.7 --------- E', lat alpa, TDI (L) 6.0 cm/sec >=10.0 Mitral valve Value Ref E/e', lat alpa, 22 --------- Peak E 1.34 m/sec ------ --- TDI Peak A 1.06 m/sec --------- E', med alpa, TDI (L) 6.5 cm/sec >=7.0 Decel time 190 ms --- ------ E/e', med alpa, 21 --------- Peak grad, D 7.2 mm Hg ------ --- TDI Peak E/A ratio 1.3 --------- E', avg, TDI 6.3 cm/sec --------- E/e', avg, TDI (H) 21 <=14 Pulmonic valve Value Ref Peak v, S 1.07 m/sec --------- LVOT Value Ref Peak grad, S 5.0 mm Hg --------- Peak noemi, S 1.24 m/sec --------- Mean noemi, S 0.76 m/sec --------- Aortic root Value Ref VTI, S 28.0 cm --------- Root diam 3.8 cm <4.5 Peak grad, S 6 mm Hg --------- Mean grad, S 3 mm Hg --------- Ascending aorta Value Ref AAo AP diam, S 3.8 cm --------- Ventricular septum Value Ref IVS, ED, LAX (H) 1.1 cm 0.6 - 1.0 Aortic arch Value Ref IVS, ED (H) 1.1 cm 0.6 - 1.0 Arch diam 2.4 cm --------- Right ventricle Value Ref Decending aorta Value Ref AW thickness, ED (H) 0.7 cm 0.1 - 0.5 Kristan peak noemi 0.85 m/sec --------- MINESH, LAX 3.9 cm --------- MINESH minor ax, A4C (H) 4.7 cm 1.9 - 3.5 Inferior vena cava Value Ref mid Diam 2.6 cm --------- Left atrium Value Ref AP dim, ES (L) 0.80 cm 3.00 - 4.00 ML dim, A4C 4.9 cm --------- SI dim, A4C 5.9 cm --------- Vol/bsa, ES, 1-p 31 ml/m^2 12 - 37 A4C Vol/bsa, ES, A/L (H) 39 ml/m^2 16 - 34 Legend: (L) and (H) josé values outside specified reference range. Prepared and electronically signed by Fred Yeh MD 03/31/2019 15:37
[2019-03-31] MEDS ORDERED: NIFEdipine ER TAB* 30 MG PO ONE (16:03)
[2019-03-31 16:48] LABS: Urine Creatinine 35.54 mg/dL; Urine Creatinine Concentration 35.54 mg/dL
[2019-03-31 17:26] LABS: UR Microalbumin (mg/L) 1632.1 mg/L; Urine Microalbumin/Creatinine 4592.2 (<31)
[2019-03-31] MEDS ORDERED: Nitro Patch/OINT Remove PATCH OFF SCH (18:00)
[2019-03-31] MEDS: Atorvastatin* 10 MG TAB PO SCH (20:31)
[2019-04-01] MEDS: Nitro 2% OINT* (Nitroglycerin) 1 INCH/PAK PAK TOPICAL SCH ×2 (05:20→05:23)
[2019-04-01] MEDS: Heparin VIAL(*) 5000 UNITS/ML VIAL (FIVE THOUSAND) SUBCUT SCH ×3 (05:21→21:09)
[2019-04-01 08:13] LABS: ABS Basophils 0.1 10^3/ul (0-0.2); ABS Eosinophils 0.4 10^3/ul (0-0.6); ABS Lymphocytes 1.3 10^3/ul (1.0-4.8); ABS Monocytes 0.9 10^3/ul (0-0.8); ABS Neutrophils 3.7 10^3/ul (1.5-7.7); Eosinophil % 5.8 %; Hematocrit 39 % (42-52); Hemoglobin 13.2 g/dL (14.0-18.0); Lymphocyte % 21.2 %; Mean Corpuscular HGB Conc 34 g/dL (31-36); Mean Corpuscular Hemoglobin 32 pg (27-31); Mean Corpuscular Volume 96 fL (80-94); Mean Platelet Volume 8.8 fL (7.4-10.4); Nucleated Red Blood Cells % 0.4; Platelet Count 160 10^3/uL (150-450); Red Blood Count 4.08 10^6 /uL (4.18-5.48); Red Cell Distribution Width 15 % (10.5-15); White Blood Count 6.3 10^3/uL (3.5-10.8)
[2019-04-01 08:19] LABS: BUN/Creatinine Ratio 12.6 (8-20); Calcium 8.9 mg/dL (8.6-10.3); EGFR African American 38.7 (>60); Potassium 3.9 mmol/L (3.5-5.0)
[2019-04-01] MEDS ORDERED: NIFEdipine ER TAB* 30 MG PO SCH (09:00)
[2019-04-01] MEDS: Insulin LISPRO* 1 UNITS UNIT SUBCUT SCH ×3 (09:11→17:40)
[2019-04-01] MEDS: Pantoprazole TAB * 40 MG TAB PO SCH (09:13)
[2019-04-01] MEDS: Hydrochlorothiazide TAB* 25 MG PO SCH (09:13)
[2019-04-01] MEDS: Furosemide IV* 10 MG/ML VIAL (40 MG) IV SCH (09:13)
[2019-04-01] MEDS: Metoprolol Tartrate TAB* 50 mg PO SCH ×2 (09:19→21:10)
[2019-04-01] MEDS: Fluticasone NASAL SPRAY 50MCG* 16 gm SPRAY BTL BOTH NARES SCH (09:20)
--- NOTE | 2019-04-01 12:41 | PN ---
Subjective Date of Service: 04/01/19 Interval History: Pt still c/o COLE, never had CP, legs chronically swollen had a stress test with DR. Dominguez 4 yrs ago when pt's brother had a heart attack Objective Active Medications: Acetaminophen (Tylenol Tab*) 650 mg PO Q4H PRN PRN Reason: FEVER/PAIN Atorvastatin Calcium (Lipitor*) 10 mg PO BEDTIME [facility] Last Admin: 03/31/19 20:31 Dose: 10 mg Cetirizine HCl (Zyrtec*) 10 mg PO DAILY PRN; Protocol PRN Reason: Allergy Symptoms Dextrose (D50w Syringe 50 Ml*) 12.5 gm IV PUSH .FOR FS < 60 - SS PRN PRN Reason: FS < 60 Fluticasone Propionate (Flonase Nasal [place] 50mcg*) 2 spray BOTH NARES QAM [facility] Last Admin: 04/01/19 09:20 Dose: 2 spray Furosemide (Lasix Iv*) 40 mg IV DAILY [facility] Last Admin: 04/01/19 09:13 Dose: 40 mg Heparin Sodium (Porcine) (Heparin Vial(*)) 5,000 units SUBCUT Q8HR [facility] Last Admin: 04/01/19 05:21 Dose: 5,000 units Hydralazine HCl (Apresoline Iv*) 10 mg IV SLOW PU Q2H PRN PRN Reason: SYSTOLIC BP GREATER THAN: Hydrochlorothiazide (Hydrodiuril Tab*) 25 mg PO DAILY [facility] Last Admin: 04/01/19 09:13 Dose: 25 mg Insulin Human Lispro (Humalog*) 0 units SUBCUT AC [facility]; Protocol Last Admin: 04/01/19 12:33 Dose: 6 units Metoprolol Tartrate (Lopressor Tab*) 75 mg PO Q12HR [facility] Last Admin: 04/01/19 09:19 Dose: 75 mg Nifedipine (Procardia Xl Tab*) 60 mg PO DAILY [facility] Last Admin: 04/01/19 09:13 Dose: 60 mg Ondansetron HCl (Zofran Inj*) 4 mg IV Q4H PRN PRN Reason: NAUSEA/VOMITING Pantoprazole Sodium (Protonix Tab*) 40 mg PO DAILY [facility] Last Admin: 04/01/19 09:13 Dose: 40 mg Vital Signs - 8 hr 04/01/19 04/01/19 04/01/19 07:45 08:00 09:10 Temperature 97.4 F Pulse Rate 75 Respiratory 16 16 Rate Blood Pressure 165/83 162/78 158/88 (mmHg) O2 Sat by Pulse 95 Oximetry Oxygen Devices in Use Now: Nasal Cannula Appearance: 58 yo M in nAD, aAOx3 Eyes: No Scleral Icterus, PERRLA Ears/Nose/Mouth/Throat: NL Teeth, Lips, Gums, Mucous Membranes Moist Neck: NL Appearance and Movements; NL JVP, Trachea Midline Respiratory: Symmetrical Chest Expansion and Respiratory Effort, - - faint bibasiliar crackles Cardiovascular: NL Sounds; No Murmurs; No JVD Abdominal: NL Sounds; No Tenderness; No Distention Lymphatic: No Cervical Adenopathy Extremities: No Clubbing, Cyanosis, - - +1 pedal edema b/l Skin: No Rash or Ulcers, No Nodules or Sclerosis Neurological: Alert and Oriented x 3, NL Muscle Strength and Tone Result Diagrams: 04/01/19 07:30 04/01/19 07:30 Microbiology and Other Data: Microbiology 03/30/19 19:00 Urine Culture - Final Urine Assess/Plan/Problems-Billing Assessment: 58 yo M with CKD stage 3, DM, ectopic left kidney with new CHF - Patient Problems (1) JONY (acute kidney injury) Comment: Prior rec Baseline Cr in 2017 1.4 No recent records-will try to obtain from PCP today Cr of 2.25 with JONY on CKD Can be cardiorenal.Also has h/o ectopic kidneys and has been using naproxen Will hold nsaids which can contribute to chf and renal failure UA, urine na,creatine,urea to assess will obtain 24H protein collection-spot urine protein/cr ratio. Can have baseline diabetic kidney dx and proteinuria Ultrasound to r/o obstruction shows ectopic kidney (known) and known renal cyst hold losartan for now (2) CHF exacerbation Comment: No known h/o CHF CXR with pul edema and clinical suggestion of vol overload and pul edema BNP elevated Improving on lasix Echo shows diastolic dysfunction, EF 50% will obtain chemical stress test in aM (3) Diabetes Comment: ISS for now Home glipizide on hold (4) Uncontrolled hypertension Comment: BP was in the 180s on admission despite being on 4 meds On B thomas increased today, lasix. Losartan on hold cont HCTZ Nifedipine titrated to 60 mg from 30 mg that he is on.He is on felodipine at home PRN hydralazine and can titrate bp meds more (5) DVT prophylaxis Comment: HSQ Status and Disposition: inpatient. Anticipate d/c in 1-2 days to home
[2019-04-01] MEDS: hydrALAZINE IV* 20 MG/ML VIAL IV SLOW PU PRN (20:00)
[2019-04-01] MEDS: Atorvastatin* 10 MG TAB PO SCH (21:10)
[2019-04-02] MEDS: hydrALAZINE IV* 20 MG/ML VIAL IV SLOW PU PRN ×4 (03:29→20:36)
[2019-04-02] MEDS: Heparin VIAL(*) 5000 UNITS/ML VIAL (FIVE THOUSAND) SUBCUT SCH ×4 (06:04→21:52)
[2019-04-02 07:20] LABS: BUN/Creatinine Ratio 13.5 (8-20); Calcium 8.9 mg/dL (8.6-10.3); EGFR African American 36.9 (>60); EGFR Non-African American 30.5 (>60); Potassium 3.8 mmol/L (3.5-5.0)
[2019-04-02] MEDS ORDERED: Regadenoson* 0.4 MG/5 ML SYRINGE ONE (07:25)
[2019-04-02] MEDS ORDERED: Potassium Chlor TAB* 20 MEQ TAB.ER PO ONE ×2 (08:18→21:29)
[2019-04-02] MEDS: Insulin LISPRO* 1 UNITS UNIT SUBCUT SCH ×3 (10:52→17:32)
[2019-04-02] MEDS: Fluticasone NASAL SPRAY 50MCG* 16 gm SPRAY BTL BOTH NARES SCH (10:53)
[2019-04-02] MEDS: Hydrochlorothiazide TAB* 25 MG PO SCH (10:53)
[2019-04-02] MEDS: Furosemide IV* 10 MG/ML VIAL (40 MG) IV SCH (10:53)
[2019-04-02] MEDS: Pantoprazole TAB * 40 MG TAB PO SCH (10:54)
[2019-04-02] MEDS: NIFEdipine ER TAB* 30 MG PO SCH (10:54)
[2019-04-02] MEDS: Metoprolol Tartrate TAB* 50 mg PO SCH (10:54)
[2019-04-02] MEDS ORDERED: Furosemide IV* 10 MG/ML VIAL (40 MG) IV ONE (11:59)
--- NOTE | 2019-04-02 13:47 | PN ---
Subjective Date of Service: 04/02/19 Interval History: Pt with good UOP and getting close to dry weight - he thinks it's 300 lbs. Is now off supplemental O2. SOB at rest has resolved, but he isn't sure if he will have dyspnea on exertion - needs to walk. Will give a second dose of furosemide IV and follow exam, weights, and Is & Os. Consider switching to PO furosemide tomorrow. Nuclear stress this AM was unremarkable. BP still too high - went up on nifedipine this AM. Can consider adding ARB before DC. Will increase metoprolol, too, as HR in 80s now. Objective Active Medications: Acetaminophen (Tylenol Tab*) 650 mg PO Q4H PRN PRN Reason: FEVER/PAIN Atorvastatin Calcium (Lipitor*) 10 mg PO BEDTIME [facility] Last Admin: 04/01/19 21:10 Dose: 10 mg Cetirizine HCl (Zyrtec*) 10 mg PO DAILY PRN; Protocol PRN Reason: Allergy Symptoms Dextrose (D50w Syringe 50 Ml*) 12.5 gm IV PUSH .FOR FS < 60 - SS PRN PRN Reason: FS < 60 Fluticasone Propionate (Flonase Nasal [place] 50mcg*) 2 spray BOTH NARES QAM [facility] Last Admin: 04/02/19 10:53 Dose: 2 spray Furosemide (Lasix Tab*) 40 mg PO DAILY [facility] Heparin Sodium (Porcine) (Heparin Vial(*)) 5,000 units SUBCUT Q8HR [facility] Last Admin: 04/02/19 13:23 Dose: 5,000 units Hydralazine HCl (Apresoline Iv*) 10 mg IV SLOW PU Q2H PRN PRN Reason: SYSTOLIC BP GREATER THAN: 180 Last Admin: 04/02/19 12:45 Dose: 10 mg Hydrochlorothiazide (Hydrodiuril Tab*) 25 mg PO DAILY [facility] Last Admin: 04/02/19 10:53 Dose: 25 mg Insulin Human Lispro (Humalog*) 0 units SUBCUT AC [facility]; Protocol Last Admin: 04/02/19 12:45 Dose: 6 units Metoprolol Succinate (Toprol Xl Tab*) 200 mg PO BEDTIME [facility] Nifedipine (Procardia Xl Tab*) 90 mg PO DAILY [facility] Last Admin: 04/02/19 10:54 Dose: 90 mg Ondansetron HCl (Zofran Inj*) 4 mg IV Q4H PRN PRN Reason: NAUSEA/VOMITING Pantoprazole Sodium (Protonix Tab*) 40 mg PO DAILY [facility] Last Admin: 04/02/19 10:54 Dose: 40 mg Vital Signs - 8 hr 04/02/19 04/02/19 04/02/19 07:20 07:46 08:00 Temperature 97.7 F Pulse Rate 72 Respiratory 16 16 Rate Blood Pressure 165/86 164/56 (mmHg) O2 Sat by Pulse 93 Oximetry 04/02/19 04/02/19 08:22 11:15 Temperature 97.5 F Pulse Rate 82 Respiratory 20 Rate Blood Pressure 188/81 182/92 (mmHg) O2 Sat by Pulse 97 Oximetry Oxygen Devices in Use Now: None Appearance: well appearing, on laptop, alert and conversant Ears/Nose/Mouth/Throat: Mucous Membranes Moist Neck: - - unable to appreciate JVP given habitus Respiratory: Clear to Auscultation Cardiovascular: RRR Extremities: No Clubbing, Cyanosis, - - 1+ edema around ankles Skin: No Rash or Ulcers Neurological: Alert and Oriented x 3 Result Diagrams: 04/01/19 07:30 04/02/19 06:38 Assess/Plan/Problems-Billing Assessment: 58M with CKD stage 3, DM2, ectopic left kidney, presents with COLE, found with new HFpEF exacerbation. - Patient Problems (1) CHF exacerbation Comment: New diagnosis, likely from h/o resistant HTN. Stress unremarkable. - given second dose furosemide IV today, check K/Mg afterwards - dry weight 300 lbs, cont daily weights and I&Os (2) Uncontrolled hypertension Comment: BP was in the 180s on admission despite being on 4 meds. Cont HCTZ Increase nifedipine (60 -> 90) and metoprolol (75 bid -> 200 qd) Give extra dose of IV furosemide Losartan on hold PRN hydralazine (3) JONY (acute kidney injury) Comment: Prior baseline Cr in 2017 was 1.4; now 2.25 with JONY on CKD Can be cardiorenal, and/or from DM2. Also has h/o ectopic kidneys and has been using naproxen. Will hold nsaids which can contribute to chf and renal failure UA, urine na,creatine,urea to assess will obtain 24H protein collection-spot urine protein/cr ratio. hold losartan for now (4) Diabetes Comment: ISS for now Home glipizide on hold. Consider optimizing oral regimen. (5) DVT prophylaxis Comment: HSQ Status and Disposition: inpatient. Anticipate d/c in 1-2 days to home
[2019-04-02 14:37] LABS: Folate 7.41 ng/mL (>3.99)
[2019-04-02] MEDS ORDERED: Cyanocobalamin INJ * 1,000 MCG/ML VIAL 1 ML VIAL IM ONE (16:00)
[2019-04-02 16:17] LABS: BUN/Creatinine Ratio 13.4 (8-20); Calcium 9.3 mg/dL (8.6-10.3); EGFR African American 34.3 (>60); EGFR Non-African American 28.3 (>60); Magnesium 1.3 mg/dL (1.9-2.7); Potassium 3.8 mmol/L (3.5-5.0)
[2019-04-02 17:59] LABS: Urine TP Concentration 365 mg/dL
[2019-04-02] MEDS: Atorvastatin* 10 MG TAB PO SCH (20:37)
[2019-04-02] MEDS ORDERED: Metoprolol Succinate XL TAB* 200 MG TAB.XL PO SCH (21:00)
[2019-04-02] MEDS ORDERED: Magnesium Sulfate 2 GM IV* 2 GM/50 ML BAG IVPB ONE (21:29)
[2019-04-03] MEDS: Heparin VIAL(*) 5000 UNITS/ML VIAL (FIVE THOUSAND) SUBCUT SCH ×2 (05:33→13:24)
[2019-04-03 07:07] LABS: Calcium 8.9 mg/dL (8.6-10.3); EGFR African American 34.3 (>60); EGFR Non-African American 28.3 (>60); Magnesium 1.7 mg/dL (1.9-2.7); Potassium 3.8 mmol/L (3.5-5.0)
[2019-04-03] MEDS ORDERED: Cyanocobalamin TAB* 500 MCG PO SCH (09:00)
[2019-04-03] MEDS ORDERED: Furosemide TAB* 40 MG PO SCH (09:00)
[2019-04-03] MEDS: Fluticasone NASAL SPRAY 50MCG* 16 gm SPRAY BTL BOTH NARES SCH (09:22)
[2019-04-03] MEDS: Insulin LISPRO* 1 UNITS UNIT SUBCUT SCH ×2 (09:22→13:19)
[2019-04-03] MEDS: Hydrochlorothiazide TAB* 25 MG PO SCH (09:23)
[2019-04-03] MEDS: NIFEdipine ER TAB* 30 MG PO SCH (09:23)
[2019-04-03] MEDS: Pantoprazole TAB * 40 MG TAB PO SCH (09:24)
[2019-04-03] MEDS ORDERED: Potassium Chlor TAB* 20 MEQ TAB.ER PO ONE (09:38)
[2019-04-03] MEDS ORDERED: Magnesium Sulfate 2 GM IV* 2 GM/50 ML BAG IVPB ONE (09:38)
--- NOTE | 2019-04-03 09:42 | PN ---
Subjective Date of Service: 04/03/19 Interval History: Diagnosed with B12 deficiency yesterday. Also with 13g protein in 24-hr urine. Received extra dose of furosemide IV yesterday with good UOP. Cr stable. Switching to furosemide PO today and will restart home ARB - losartan 25mg. Now just under weight at last PCP visit. Pt reports he is back to baseline, ambulating OK, and would like to go home. Objective Active Medications: Acetaminophen (Tylenol Tab*) 650 mg PO Q4H PRN PRN Reason: FEVER/PAIN Atorvastatin Calcium (Lipitor*) 10 mg PO BEDTIME [facility] Last Admin: 04/02/19 20:37 Dose: 10 mg Cetirizine HCl (Zyrtec*) 10 mg PO DAILY PRN; Protocol PRN Reason: Allergy Symptoms Cyanocobalamin (Vitamin B12 Tab*) 1,000 mcg PO DAILY [facility] Last Admin: 04/03/19 09:24 Dose: 1,000 mcg Dextrose (D50w Syringe 50 Ml*) 12.5 gm IV PUSH .FOR FS < 60 - SS PRN PRN Reason: FS < 60 Fluticasone Propionate (Flonase Nasal [place] 50mcg*) 2 spray BOTH NARES QAM [facility] Last Admin: 04/03/19 09:22 Dose: 2 spray Furosemide (Lasix Tab*) 40 mg PO DAILY [facility] Last Admin: 04/03/19 09:24 Dose: 40 mg Heparin Sodium (Porcine) (Heparin Vial(*)) 5,000 units SUBCUT Q8HR [facility] Last Admin: 04/03/19 05:33 Dose: 5,000 units Hydralazine HCl (Apresoline Iv*) 10 mg IV SLOW PU Q2H PRN PRN Reason: SYSTOLIC BP GREATER THAN: Last Admin: 04/02/19 20:36 Dose: 10 mg Hydrochlorothiazide (Hydrodiuril Tab*) 25 mg PO DAILY [facility] Last Admin: 04/03/19 09:23 Dose: 25 mg Insulin Human Lispro (Humalog*) 0 units SUBCUT AC [facility]; Protocol Last Admin: 04/03/19 09:22 Dose: 3 units Metoprolol Succinate (Toprol Xl Tab*) 200 mg PO BEDTIME [facility] Last Admin: 04/02/19 20:36 Dose: 200 mg Nifedipine (Procardia Xl Tab*) 90 mg PO DAILY [facility] Last Admin: 04/03/19 09:23 Dose: 90 mg Ondansetron HCl (Zofran Inj*) 4 mg IV Q4H PRN PRN Reason: NAUSEA/VOMITING Pantoprazole Sodium (Protonix Tab*) 40 mg PO DAILY [facility] Last Admin: 04/03/19 09:24 Dose: 40 mg Vital Signs - 8 hr 04/03/19 04/03/19 04/03/19 02:56 03:36 07:30 Temperature 98 F 97.5 F Pulse Rate 74 55 70 Respiratory 16 16 Rate Blood Pressure 160/90 143/84 (mmHg) O2 Sat by Pulse 93 96 Oximetry Oxygen Devices in Use Now: None Appearance: well appearing, no increased WOB Eyes: No Scleral Icterus Ears/Nose/Mouth/Throat: Clear Oropharnyx, Mucous Membranes Moist Neck: NL Appearance and Movements; NL JVP Respiratory: Clear to Auscultation Cardiovascular: RRR Abdominal: NL Sounds; No Tenderness; No Distention Lymphatic: No Cervical Adenopathy Extremities: No Clubbing, Cyanosis, - - no pitting edema over LEs Skin: No Rash or Ulcers Neurological: Alert and Oriented x 3, NL Gait, NL Muscle Strength and Tone Result Diagrams: 04/01/19 07:30 04/03/19 06:37 Microbiology and Other Data: Microbiology 03/30/19 19:00 Urine Culture - Final Urine Assess/Plan/Problems-Billing Assessment: 58M with CKD stage 3, DM2, ectopic left kidney, presents with COLE, found with new HFpEF exacerbation, significant proteinuria, and vit B12 deficiency. - Patient Problems (1) CHF exacerbation Comment: New diagnosis, likely from h/o resistant HTN. Stress unremarkable. - switching to oral furosemide, now at dry weight (2) Uncontrolled hypertension Comment: BP was in the 180s on admission despite being on 4 meds. Cont HCTZ Will stop nifedipine and resume home felodipine Starting Losartan at lower dose. PRN hydralazine (3) JONY (acute kidney injury) Comment: Prior baseline Cr in 2017 was 1.4; now 2.25 with JONY on CKD. 24-hr protein 13g. Can be cardiorenal, and/or from DM2. Also has h/o ectopic kidneys and has been using naproxen. Will hold nsaids which can contribute to chf and renal failure - educated patient. Restart losartan given Cr stable. (4) Diabetes Comment: After discharge, will trial diet/exercise for A1c control. Would benefit from liraglutide if medication needed. (5) DVT prophylaxis Comment: HSQ Status and Disposition: inpatient. Anticipate d/c in 1-2 days to home
[2019-04-03] MEDS ORDERED: Losartan TAB* 25 MG PO SCH (10:00)
[2019-04-03 12:05] VITALS: BP 156/82
--- NOTE | 2019-04-03 14:37 | DS ---
CC: Drew Robin MD* DISCHARGE SUMMARY: DATE OF ADMISSION: 03/30/19 DATE OF DISCHARGE: 04/03/19 PRIMARY CARE PHYSICIAN: Drew Robin MD. PRIMARY DIAGNOSES: 1. Heart failure with preserved ejection fraction. 2. Chronic kidney disease with significant proteinuria, possibly secondary to hypertension. 3. Resistant hypertension. 4. Vitamin B12 deficiency. SECONDARY DIAGNOSES: 1. Diabetes mellitus type 2, well controlled. 2. Morbid obesity. 3. Ectopic kidney. DISCHARGE MEDICATIONS: 1. Losartan 25 mg daily. 2. Metoprolol succinate 200 mg nightly. 3. Hydrochlorothiazide 25 mg daily. 4. Felodipine 5 mg daily. 5. Furosemide 40 mg daily. 6. Simvastatin 20 mg daily. 7. Cetirizine 10 mg daily. 8. Vitamin B12 1000 mcg daily. 9. Omeprazole 20 mg daily. HISTORY OF PRESENT ILLNESS: A 58-year-old man with diabetes, resistant hypertension, hyperlipidemia, GERD, BPH, and ectopic kidney, who is presenting to the emergency department with progressive dyspnea on exertion for 3 to 4 days. Since yesterday, he has only been able to take about 10 steps before becoming significantly short of breath and needing to rest. On morning of presentation, he was feeling short of breath with minimal ambulation, became lightheaded. He denies fall or syncope. This is in the context of increasing leg swelling. He notes that he has had intermittent leg swelling for a month, but for the past few days has noticed increased swelling to the point where it is the worst that he has ever seen it. He has also had a dry cough for last several weeks. He denied fevers, chills, chest pain, abdominal pain, nausea, vomiting, recent sick contacts. HOSPITAL COURSE: In ER, pt noted to have oxygen saturation 92% on room air with respiratory rate of 18 and blood pressure 183/98. He was given 40 mg IV Lasix and admitted to the hospital for possible heart failure exacerbation. He underwent transthoracic echocardiogram which was concerning for heart failure with a preserved ejection fraction. His weight on admission was 319 pounds and he notes that his last weight in clinic was 300 pounds. He was continued on IV furosemide with monitoring of daily weight and volume status until day of discharge when his weight reached 297 pounds. He also underwent a stress test this admission which was deemed low risk. His shortness of breath and lower extremity edema progressively improved throughout admission until day of discharge when he reported no dyspnea on exertion with ambulation on the hospital floor with improvement of lower extremity edema to better than his prior baseline. Given his elevated creatinine, he underwent a 24-hour urine protein collection and was noted to have 13 g of protein. The patient has his outside records, which show 2 years ago creatinine of 1.5 with creatinine last year 1.7 and creatinine over 1 month ago of 2.2. For this admission, the patient presented with creatinine 2.25 and was discharged with creatinine 2.38. Given stability of his creatinine unchanged from recent clinic appointment, he was deemed to not have JONY and was continued on lower dose of losartan and educated to follow up closely with a garment turner given his proteinuria and for better blood pressure management. The patient's A1c was less than 7. He was noted to only be on glipizide. Of note, the patient was also noted to have a mild macrocytic anemia during admission and he is screened for B12 and he had a noted deficiency, so he was given an injection of B12 and started on high dose oral supplementation. Ten-point review of systems performed on day of discharge with the following pertinent positives and negatives. The patient denies dyspnea with exertion, chest pain, abdominal pain. He reports significant improvement in his lower extremity edema. PHYSICAL EXAMINATION: Afebrile, heart rate 70, blood pressure 142/84, respiratory rate 12, oxygen saturation 96% on room air. In general, well- appearing man, alert and interactive, no acute distress. No increased work of breathing. Neck: No JVD. HEENT: OP clear. Moist mucous membranes. Heart: Regular rate and rhythm. No murmurs, gallops, or rubs. Lungs: Clear to auscultation bilaterally. Abdomen: Soft, nontender, nondistended, protuberant. Lower extremities: Warm and well perfused with trace pitting edema over the ankles bilaterally with significant wrinkling. PERTINENT STUDIES AND LABS: Hemoglobin 13.2 with MCV 96. Creatinine 2.38, stable. His vitamin B12 level was 177. Hgb A1c 6.6% Urine total protein 24 hours 1300 mg. [id number] ratio [id number]. UA with 2+ protein, negative for blood. No casts mentioned. Chest x-ray on admission with pulmonary edema. Transthoracic echocardiogram shows LV cavity size normal with wall thickness mildly increased. Systolic function normal. Estimated EF 55% to 60% with normal wall motion and without regional wall motion abnormalities with concomitant abnormal relaxation and increased filling pressures. The LA is mildly dilated. The RA is mild to moderately dilated. Mitral valve leaflets mildly thickened. Venous Doppler studies, no sonographic evidence of femoropopliteal DVT. Nuclear medicine scan without defects of stress induced or fixed nature. Cardiac chamber size normal. No wall motion abnormalities. Assessment is low risk. Renal ultrasound with cross views ectopia of the left kidney. No hydronephrosis or nephrolithiasis. DISCHARGE PLAN: The patient is to follow up with his PCP and has been referred to Nephrology for a progression of kidney disease with significant proteinuria. He was educated to avoid NSAIDs and to continue to monitor his blood home and bring log to his PCP and also to Nephrology Clinic. It is possible that his chronically progressive kidney disease is from uncontrolled hypertension or recent high NSAID use. His A1c does seem to have tight control, so diabetic nephropathy is low on differential. He was educated to stop taking glipizide given A1c well within goal and to continue eating a healthy diet and exercise to maintain good blood glucose. If medication is needed for diabetes after repeat of A1c, he would likely benefit significantly from monotherapy with liraglutide. Canagliflozin is also preferred; however, his impaired renal function is currently a contraindication to this medication as well as metformin. He states he has had a reaction to sitagliptin in the past. He was given return precautions which include but are not limited to recurrence in dyspnea on exertion, shortness of breath, or lower extremity swelling. He should also monitor his blood pressures at home closely and call his PCP if he is consistently above his goal of 130/80. He is to stop home atenolol and take metoprolol as noted in the medication list above. He can continue his home calcium channel thomas and he was started on a lower dose of losartan 25, but this could be uptitrated as an outpatient. He can continue his home hydrochlorothiazide that could be taken in conjunction with adding on loop diuretic furosemide 40 mg daily as he responded well to IV diuresis in the hospital with furosemide with concomitant hydrochlorothiazide use. He is to also continue high dose vitamin B12 for noted deficiency during admission. DISPOSITION: To home. CONDITION: Good. TIME SPENT: Approximately 60 minutes was spent on the discharge of this patient ; more than half of which was spent with care, coordination or at bedside for interview and exam. [id number]/CPS #: [id number] BROOKS
== END 2019-04-03 14:00 | disposition home or self-care (01) | DRG 291 ==
LOC: ED 15:11 → MED 19:00 → OBSVTOIN 03-31 09:25
PROVIDERS: ADMIT Student in an Organized Health Care Education/Training Program; ATTEND Internal Medicine
DX: I13.0 Hypertensive heart and chronic kidney disease with heart failure and stage 1 through stage 4 chronic kidney disease, or unspecified chronic kidney disease (principal); I50.31 Acute diastolic (congestive) heart failure; Z68.41 Body mass index [BMI] 40.0-44.9, adult; E11.22 Type 2 diabetes mellitus with diabetic chronic kidney disease; E66.01 Morbid (severe) obesity due to excess calories; N18.3 Chronic kidney disease, stage 3 (moderate); E78.5 Hyperlipidemia, unspecified; N40.0 Benign prostatic hyperplasia without lower urinary tract symptoms; K21.9 Gastro-esophageal reflux disease without esophagitis; E53.8 Deficiency of other specified B group vitamins; R80.9 Proteinuria, unspecified; Q63.2 Ectopic kidney; Z79.84 Long term (current) use of oral hypoglycemic drugs; Z79.899 Other long term (current) drug therapy; Z88.8 Allergy status to other drugs, medicaments and biological substances; Z91.018 Allergy to other foods; Z82.5 Family history of asthma and other chronic lower respiratory diseases; Z87.891 Personal history of nicotine dependence
CPT/HCPCS: 36415; 71046; 76775; 78452; 80048; 80053; 81003; 81015; 82043; 82570; 82607; 82746; 83036; 83735; 83880; 84156; 84300; 84484; 84540; 85025; 85379; 87086; 93005; 93017; 93306; 93970; 99284; A9270-GY; A9502; J0360; J1644; J1940; J2785; J3420; J3475